=== PATIENT | male | born 1955 | race Caucasian/White ===

== ENCOUNTER 2017-05-16 18:59 | Emergency (ER) | payer OTHER ==
[~2017-05-16] VITALS: Ht 170.2 cm; Wt 66.0 kg
[2017-05-16 19:16] VITALS: BP 124/87
== END 2017-05-16 21:40 | disposition home or self-care (01) ==
LOC: ED 19:30 → EDBD 19:30 → ED 21:40
DX: S42.114A Nondisplaced fracture of body of scapula, right shoulder, initial encounter for closed fracture (principal); W19.XXXA Unspecified fall, initial encounter; Y93.89 Activity, other specified; Y92.59 Other trade areas as the place of occurrence of the external cause; Y99.9 Unspecified external cause status
CPT/HCPCS: 29105; 71250; 99284